=== PATIENT | male | born 1930 | race Caucasian/White ===

== ENCOUNTER 2017-03-18 23:21 | Emergency (ER) | payer OTHER ==
[~2017-03-18] VITALS: Ht 167.6 cm; Wt 59.0 kg
[2017-03-18 23:25] VITALS: BP 176/77
--- NOTE | 2017-03-18 23:26 | NUR ---
PT HELLEN BLS. TAKEN TO BED 3
--- NOTE | 2017-03-18 23:26 | NUR ---
86Y M BIBA C/O Hematuria secondary to pulling on hooper. PT DENIES ANY N/V/D, SOB, CP AT THE MOMENT. PT AAOX4. BREATHING IS UNLABORED AND CLEAR. ER MADE AWARE
--- NOTE | 2017-03-18 23:32 | NUR ---
Dr. Bailey evaluating patient at bedside.
--- NOTE | 2017-03-19 00:11 | NUR ---
Patient discharged with v/s stable. Written and verbal after care instructions given and explained. Patient verbalized understanding. Wheel Chair Assisted with to custodial. All questions addressed prior to discharge. Advised to follow up with PMD. PT STATES HE WILL PAY FOR TAXI RIDE HOME
[2017-03-19 00:12] VITALS: BP 162/79
== END 2017-03-19 00:11 | disposition home or self-care (01) ==
LOC: MED 23:21
DX: T83.028A Displacement of other urinary catheter, initial encounter (principal); F03.90 Unspecified dementia, unspecified severity, without behavioral disturbance, psychotic disturbance, mood disturbance, and anxiety; Z88.8 Allergy status to other drugs, medicaments and biological substances; X58.XXXA Exposure to other specified factors, initial encounter
CPT/HCPCS: 51702; 99284

== ENCOUNTER 2017-12-26 19:39 | Emergency (ER) | payer OTHER, MEDICARE ==
[~2017-12-26] VITALS: Ht 167.6 cm; Wt 59.0 kg
[2017-12-26 19:41] VITALS: BP 127/81
--- NOTE | 2017-12-26 19:41 | NUR ---
PT HELLEN BLS TO ER BED 06
[2017-12-26] MEDS ORDERED: MEROPENEM 1,000 MG in NACL 0.9% 100 ML IV ONE (20:15)
--- NOTE | 2017-12-26 20:30 | NUR ---
CATHETER PT ARRIVED WITH REMOVED. BLOOD IN CATHETER TUBING. BLOOD DRAINED UPON REMOVAL. PERINEAL CARE PERFORMED. THICK MUCUS REMOVED. NEW INDWELLING CATHETER PLACED. PT TOLERATED PROCEDURE WELL. 300 ML OF DARK CLOUDY URINE REMOVED UPON INSERTION OF CATHETER.
[2017-12-26] MEDS ORDERED: MEROPENEM 1,000 MG VIAL IV ONE (20:34)
[2017-12-26 20:59] LABS: BASOPHILS % (AUTO) 0.4 % (0.0-2.0); EOSINOPHILS # (AUTO) 0.3 K/uL (0-0.4); EOSINOPHILS % (AUTO) 3.5 % (0.0-4.0); HEMATOCRIT 37.8 % (36-52); HEMOGLOBIN 12.5 g/dL (12.0-18.0); LYMPHOCYTES # (AUTO) 1.4 K/uL (2.0-11.5); LYMPHOCYTES % (AUTO) 16.2 % (20.5-51.1); MEAN CORPUSCULAR HEMOGLOBIN 30 pg (27-31); MEAN CORPUSCULAR HGB CONC 33 g/dL (33-37); MEAN CORPUSCULAR VOLUME 90.8 fL (80-94); MONOCYTES # (AUTO) 1.1 K/uL (0.8-1.0); NEUTROPHILS # (AUTO) 5.7 K/uL (1.8-7.7); NEUTROPHILS % (AUTO) 66.9 % (42.2-75.2); PLATELET COUNT (AUTO) 122 K/uL (140-450); RED BLOOD CELL COUNT(AUTO) 4.16 MIL/uL (4.20-6.10); WHITE BLOOD COUNT (AUTO) 8.5 K/uL (4.8-10.8)
[2017-12-26 21:07] LABS: APPEARANCE,URINE SL CLOUDY (CLEAR); BILIRUBIN,URINE NEGATIVE (NEGATIVE); BLOOD, URINE 3+ (NEGATIVE); COLOR,URINE YELLOW (YELLOW); LEUKOCYTE ESTERASE ,URINE 1+ (NEGATIVE); NITRITE, URINE POSITIVE (NEGATIVE); UGLUCOSE NEGATIVE (NEGATIVE)
[2017-12-26 21:17] LABS: PROTHROMBIN TIME 11.7 secs (10.8-13.4)
[2017-12-26 21:19] LABS: ALBUMIN 3.3 g/dL (3.4-5.0); ANION GAP 14.3 (8-16); ASPARTATE AMINOTRANSFERASE 44 U/L (15-37); CHLORIDE 104 mmol/L (98-107); CREATININE 1.3 mg/dL (0.7-1.3); GLUCOSE 105 mg/dL (74-106); LIPASE 166 U/L (73-393); POTASSIUM 4.3 mmol/L (3.5-5.1); SODIUM SERUM 140 mmol/L (136-145); TOTAL BILIRUBIN 0.4 mg/dL (0.0-1.0); UREA NITROGEN, BLOOD 21 mg/dL (7-18)
[2017-12-26 21:38] LABS: RBC,URINE TOO NUMEROUS TO COUN /HPF (0-5)
[2017-12-26 21:39] LABS: URINE AMORPHOUS URATE 1+ /HPF (None Seen)
[2017-12-26 22:06] LABS: CREATINE KINASE MB 1.1 ng/mL (0-3.6)
--- NOTE | 2017-12-26 22:27 | NUR ---
[facility] CALLED TO MAKE SURE OK TO D/C PT W/ IM MEDICATION, REFERRED TO RADIO ENGINEERING TEACHER, EVANGELIST [phone].
--- NOTE | 2017-12-26 22:28 | NUR ---
SENIOR ASSISTANT MANAGER OF [facility] CALLED, NO ANSWER, MESSAGE LEFT WITH [facility] ER NUMBER.
[2017-12-27 00:28] VITALS: BP 127/81
--- NOTE | 2017-12-27 00:28 | NUR ---
Patient to be transferred to [facility] room 6A. Is being transferred due to strep-UTI, observation, and antibiotic administration. Receiving facility has accepting physician and available space. ER physician has signed transfer form. Patient or responsible constitution party has agreed to transfer and signed form. Patient belongings inventoried and will be sent with patient. Copy of nursing notes, lab reports, EKG, Physicians Orders and X-rays to be sent with patient. Report called to [facility] at receiving facility. [facility] ambulance service has been called for transfer.
--- NOTE | 2017-12-27 00:28 | NUR ---
Patient discharged with v/s stable. Written and verbal after care instructions given and explained. Patient alert, oriented and verbalized understanding of instructions. Ambulatory with to [facility]. All questions addressed prior to discharge. ID band removed. Patient advised to follow up with PMD. Rx of Meropenem given. Patient educated on indication of medication including possible reaction and side effects. Opportunity to ask questions provided and answered.
[2017-12-27] MEDS ORDERED: MEROPENEM 1,000 MG in NACL 0.9% 100 ML IV SCH (09:00)
--- NOTE | 2017-12-29 17:37 | NUR ---
PATIENT URINE CULTURE RETURNED AT THIS TIME PATIENT WAS DISCHARGED TO [facility], FOR IV ANTIBIOTIC THERAPY.
== END 2017-12-27 00:28 ==
LOC: MED 19:39
DX: N39.0 Urinary tract infection, site not specified (principal); B96.5 Pseudomonas (aeruginosa) (mallei) (pseudomallei) as the cause of diseases classified elsewhere; N40.1 Benign prostatic hyperplasia with lower urinary tract symptoms; Z88.8 Allergy status to other drugs, medicaments and biological substances
CPT/HCPCS: 36415; 51702; 71045; 80053; 81001; 82550; 82553; 83605; 83690; 84484; 85025; 85610; 85730; 87040; 87086; 87186; 93005; 96365; 99285; J2185

== ENCOUNTER 2018-03-14 09:07 | Inpatient (IN) | payer OTHER, MEDICARE ==
[~2018-03-14] VITALS: Ht 162.6 cm; Wt 56.7 kg
[2018-03-14 09:11] VITALS: BP 129/108
--- NOTE | 2018-03-14 09:19 | NUR ---
PT BIBA TO ED WITH C/O OF LLQ ABD PAIN X 1 DAY. PT DENIES N/V TODAY. PT HAS HX OF DEMENTIA AND IS A POOR HISTORIAN. BOWEL SOUNDS PRESENT IN ALL 4 QUADRANTS, ABDOMEN IS SOFT WITH MILD BLOATING PRESENT IN THE LOWER QUADRANTS. PT DENIES OTHER SYMPTOMS. PT PLACED ON MONITOR. ALL VSS. PENDING MD CHAN. RESP EVEN AND UNLABORED, LUNG SOUNDS CLEAR BILATERALLY, SAFETY PRECAUTIONS IN PLACE, FALL RISK BAND APPPLIED. WILL CONTINUE TO MONITOR.
[2018-03-14] MEDS ORDERED: NACL 0.9% 500 ML IV SCH (09:21)
[2018-03-14] MEDS ORDERED: NACL 0.9% 500 ML IV ONE (09:25)
--- NOTE | 2018-03-14 09:37 | NUR ---
phleb at bedside at this time
--- NOTE | 2018-03-14 09:52 | NUR ---
er md evaluating pt at bedside at this time
[2018-03-14 10:00] LABS: BASOPHILS % (AUTO) 0.1 % (0.0-2.0); HEMATOCRIT 37.8 % (36-52); HEMOGLOBIN 12.5 g/dL (12.0-18.0); LYMPHOCYTES # (AUTO) 0.3 K/uL (2.0-11.5); LYMPHOCYTES % (AUTO) 3.3 % (20.5-51.1); MEAN CORPUSCULAR HEMOGLOBIN 31 pg (27-31); MEAN CORPUSCULAR HGB CONC 33 g/dL (33-37); MEAN CORPUSCULAR VOLUME 92.2 fL (80-94); MONOCYTES # (AUTO) 0.3 K/uL (0.8-1.0); NEUTROPHILS # (AUTO) 8.5 K/uL (1.8-7.7); NEUTROPHILS % (AUTO) 93.6 % (42.2-75.2); PLATELET COUNT (AUTO) 140 K/uL (140-450); RED CELL DISTRIBUTION WIDTH 14.6 % (11.6-13.7); WHITE BLOOD COUNT (AUTO) 9.1 K/uL (4.8-10.8)
[2018-03-14] MEDS ORDERED: PIPERACILLIN/TAZOBACTAM 3.375 GM in DEXTROSE 5% 50 ML IV ONE (10:10)
[2018-03-14 10:14] LABS: PROTHROMBIN TIME 14.6 secs (10.8-13.4)
--- NOTE | 2018-03-14 10:15 | NUR ---
Patient taken for CT scan via [facility] at this time.
--- NOTE | 2018-03-14 10:17 | NUR ---
pt taken to ct scan at this time via [facility]
[2018-03-14] MEDS ORDERED: PIPERACILLIN/TAZOBACTAM 3.375 GM VIAL IV ONE (10:20)
[2018-03-14 10:29] LABS: ALBUMIN 2.8 g/dL (3.4-5.0); ANION GAP 21.4 (8-16); ASPARTATE AMINOTRANSFERASE 41 U/L (15-37); CARBON DIOXIDE 17.7 mmol/L (21-32); CHLORIDE 107 mmol/L (98-107); GLUCOSE 142 mg/dL (74-106); POTASSIUM 5.1 mmol/L (3.5-5.1); SODIUM SERUM 141 mmol/L (136-145); TOTAL BILIRUBIN 0.5 mg/dL (0.0-1.0)
--- NOTE | 2018-03-14 10:29 | NUR ---
critical lab value received at this time from Vonnie, Lactic Acid 5.0. carlita smiley notified.
[2018-03-14] MEDS ORDERED: NACL 0.9% 1,200 ML IV ONE (10:30)
[2018-03-14 10:31] LABS: CREATININE 5.4 mg/dL (0.7-1.3); UREA NITROGEN, BLOOD 85 mg/dL (7-18)
--- NOTE | 2018-03-14 11:10 | NUR ---
pt arrived w/ hooper catheter inserted upon arrival. scans showed bladder was full. new hooper to be inserted at this time.
[2018-03-14 11:18] LABS: APPEARANCE,URINE CLOUDY (CLEAR); BILIRUBIN,URINE NEGATIVE (NEGATIVE); BLOOD, URINE LARGE (NEGATIVE); COLOR,URINE YELLOW (YELLOW); LEUKOCYTE ESTERASE ,URINE 2+ (NEGATIVE); NITRITE, URINE NEGATIVE (NEGATIVE); PH,URINE 7.5 (5.0-9.0); UGLUCOSE NEGATIVE (NEGATIVE)
[2018-03-14 11:19] LABS: RBC,URINE 3-10 (FEW) /HPF (0-5); WBC,URINE TOO MANY TO COUNT /HPF (0-5)
[2018-03-14] MEDS ORDERED: LEVOFLOXACIN 500 MG/D5W PREMIX 100 ML IV ONE ×2 (11:20→11:40)
--- NOTE | 2018-03-14 11:21 | NUR ---
new urine sample collected at this time. Addendum: 03/14/18 at 1125 by [email or web address] new urine sample collected at this time from newly inserted hooper catheter. The previously inserted catheter from [employer] was not inserted into the bladder, catheter had been inserted into the urethral upon arrival and ripped out, causing a tear to the posterior portion of the penile head. bleeding controlled. pt presents with parphimosis and excoriation under the foreskin. penile swelling noted. md aware. coude catheter used. bladder was distended, 2000ml purulent, cloudy, brown urine into hooper bag. pt reports immediate relief of abd pain, pt appears to be restig comfortably following catheter insertion, pt tolerated procedure well. er md and full charge bookkeeper notfied of current findings and pt status. safety precautions in place. will continue to closely monitor.
[2018-03-14] MEDS ORDERED: HYDROcodone/APAP 7.5/325 MG 1 TAB PO PRN (11:35)
[2018-03-14] MEDS ORDERED: DOCUSATE SODIUM 100 MG GELCAP PO PRN (11:35)
[2018-03-14] MEDS ORDERED: ONDANSETRON 4 MG/2 ML VIAL IM/IVP PRN (11:35)
--- NOTE | 2018-03-14 12:30 | NUR ---
pt resting cmfortably in [facility] at this time w/ vss, rr even and unlabored. safety precautions in place. will continue to monitor.
--- NOTE | 2018-03-14 12:47 | NUR ---
resident md segundo at bedside at this time evaluating pt.
[2018-03-14 12:51] LABS: BARBITURATE, URINE NEG. ng/ml (NEG <=200); BENZODIAZEPINE, URINE NEG. ng/mL (NEG <=200); CANNABINOID, URINE NEG. ng/mL (NEG <=50); COCAINE, URINE NEG. ng/mL (NEG <=300); OPIATE, URINE NEG. ng/mL (NEG <=2000); PHENCYCLIDINE SCREEN,URINE NEG. ng/mL (NEG <=25)
[2018-03-14 12:56] LABS: APPEARANCE,URINE CLOUDY (CLEAR); COLOR,URINE YELLOW (YELLOW); PH,URINE 7.5 (5.0-9.0)
[2018-03-14 12:57] LABS: BILIRUBIN,URINE NEGATIVE (NEGATIVE); BLOOD, URINE LARGE (NEGATIVE); LEUKOCYTE ESTERASE ,URINE 2+ (NEGATIVE); NITRITE, URINE NEGATIVE (NEGATIVE); UGLUCOSE NEGATIVE (NEGATIVE)
[2018-03-14 12:58] LABS: CHOL/HDL RATIO 3.8 (1-4.5); FREE T4 (FREE THYROXINE) 1.92 ng/dL (0.76-1.46); MAGNESIUM 1.7 mg/dL (1.8-2.4); PHOSPHORUS 3.5 mg/dL (2.5-4.9); THYROID STIMULATING HORMONE 2.08 uIU/mL (0.34-3.74)
[2018-03-14 13:05] LABS: RBC,URINE 3-10 (FEW) /HPF (0-5); WBC,URINE TOO MANY TO COUNT /HPF (0-5)
[2018-03-14 13:19] VITALS: BP 95/59
--- NOTE | 2018-03-14 13:20 | NUR ---
PT RECEIVED FROM ER VIA JERRY. A/OX3. VERBAL. RE-ORIENT TO TIME, PLACE AND PERSON. SKIN DRY AND WARM TO TOUCH. PUPILS REACTIVE O LIGHT. IN ROOM AIR SATURATING 96%. LUNGS CLEAR. PERIPHERAL LINE NOTED ON RIGHT HAND 22G. SALINE LOCK. ABDOMEN SOFT, ROUND AND NON-TENDER. ACTIVE BOWEL SOUND. SKIN INTACT. DENIES PAIN, N/V AT THIS TIME. SMALL PORTION OF NAIL NOTED ON RIGHT SECOND TOE. KEPT ON BEDSIDE MONITOR. HOB ELEVATED. BED IN LOW POSITION LOCKED. CALL LIGHT WITHIN REACH. WILL CONTINUE TO MONITOR.
--- NOTE | 2018-03-14 13:20 | NUR ---
Patient will be admitted to care of [facility]. Admited to ICU Will go to room 5. Belongings list completed. Report to HYACINTH Gaines.
[2018-03-14] MEDS ORDERED: LORazepam 2 MG/ML VIAL IVP SCH (14:00)
[2018-03-14] MEDS ORDERED: MAG SULF 2000 MG/WATER PREMIX 50 ML IV ONE (14:20)
[2018-03-14] MEDS: NACL 0.9% 1,000 ML IV SCH (14:42)
[2018-03-14] MEDS ORDERED: MORPHINE SULFATE 2 MG/ML SYR IVP SCH (15:00)
--- NOTE | 2018-03-14 15:15 | NUR ---
OLD IV PERIPHERAL LINE WAS LEAKING. DC'D OLD LINE AND INSERTED NEW PERIPHERAL LINE ON RIGHT HAND 22G.
--- NOTE | 2018-03-14 15:20 | NUR ---
KENDAL PALACIOS ADMITTED FROM ER HE HAS THE POLST SAID TO BE DNR SIGN BY HIM SELF ON 12/24/17. WHEN DR. SANTA DISCUSSED WITH HIM REGARDING HIS CODE STATUS ,HE SAID HE WANTED EVERY THING TO BE DONE FOR HIM. ICU DIRECTOR MARCE HOWELL CONSULTED, SHE SAID TO PUT PATIENT CODE STATUS TO FULL CODE.
--- NOTE | 2018-03-14 15:30 | NUR ---
PT AGREED TO START CENTRAL LINE AND PERFORM AGGRESSIVE TREATMENT WHEN CONDITION DETERIORATES. SIGN INFORMED CONSENT FOR CENTRAL LINE PLACEMENT. CONSENT PLACED IN THE PT CHART. DR. NICHOLSON.
[2018-03-14] MEDS: MAGNESIUM SULFATE 1GM in DEXTROSE 5% 100 ML PREMIX IV SCH ×2 (15:54→17:01)
[2018-03-14 16:00] VITALS: BP 124/62
--- NOTE | 2018-03-14 16:32 | NUR ---
CENTRAL LINE PLACEMENT AT RIGHT IJ DONE BY DR. SANTA. CALL X-RAY FOR PLACEMENT CONFIRMATION. NO ACTIVE BLEEDING AT THE SITE. DRESSING INTACT. PT SLEEPING IN BED COMFORTABLY AT THIS TIME. VS WNL.
[2018-03-14] MEDS ORDERED: SULF-58 PO (16:37)
[2018-03-14] MEDS ORDERED: LORA10TA19 PO (16:41)
[2018-03-14] MEDS ORDERED: TAMS0.4C97 PO (16:41)
[2018-03-14] MEDS ORDERED: FINA5TAB1 PO (16:41)
[2018-03-14] MEDS ORDERED: DONE10TA10 PO (16:41)
[2018-03-14] MEDS ORDERED: FLUC150T PO (16:41)
[2018-03-14] MEDS ORDERED: LISI10TA11 PO (16:41)
[2018-03-14] MEDS ORDERED: ALBUTEROL SULFATE/IPRATROPIU 3 ML SOL IH PRN (16:55)
[2018-03-14] MEDS ORDERED: MECLIZINE 25 MG TAB PO PRN (16:55)
[2018-03-14 17:48] VITALS: BP 102/66
--- NOTE | 2018-03-14 19:06 | NUR ---
REPORT GIVEN TO GEOMAGNETICIAN RN FOR CONTINUITY OF CARE. PT ON SATBLE CONDITION.
--- NOTE | 2018-03-14 19:07 | NUR ---
SPOKE WITH DR. GUZMÁN (RESIDENT) TO INFORMED THAT PATIENT DOES NOT HAVE ANY ELECTRICIAN AIRCRAFT CONSULT YET, PER DR. GUZMÁN, " THIS PATIENT DOES NOT NEED AN ELECTRICIAN AIRCRAFT BECAUSE THIS PATIENT IS NOT CRITICAL, PATIENT HAS BEEN SEEN BY AIR QUALITY SPECIALIST ALREADY".
--- NOTE | 2018-03-14 19:30 | NUR ---
assumed care of pt.initial assessment completed.pt drowsy.sr on monitor.pt on room air.no sob noted.w/tlc to rt ij intact.with good blood return to all 3 ports infusing ordered ivf.w/peripheral iv to rt hand g22.saline lock.with hooper catheter to bsd draining adequate amt of yellow urine with sediments.skin intact.repositioned.no s/sx of pain noted. will feed pt once fully awake.
[2018-03-14] MEDS: ALBUTEROL SULFATE/IPRATROPIU 3 ML SOL IH SCH (19:47)
[2018-03-14 20:00] VITALS: BP 96/35
[2018-03-14] MEDS: DONEPEZIL 10 MG TAB PO SCH (20:10)
[2018-03-14] MEDS: PIPER/TAZO 2.25GM/D5W PREMIX 50 ML IV SCH (20:10)
--- NOTE | 2018-03-14 20:57 | NUR ---
pt arousable to deep pain at this time.will continue to closely monitor pt
[2018-03-14 22:00] VITALS: BP 93/55
--- NOTE | 2018-03-14 23:00 | NUR ---
pt awake; ate about 80% of meal.no difficulty of swallowing noted.no sob noted on room air.denies pain when asked
[2018-03-15] VITALS (9 sets, daily range): BP systolic 104–140; BP diastolic 49–97
--- NOTE | 2018-03-15 00:22 | NUR ---
repositioned.no sob noted.no pain noted.skin remains intact
--- NOTE | 2018-03-15 01:49 | NUR ---
pt to ct of head without contrast with ciarra rn.monitors attached.pt on room air.tolerating.no sob noted.
--- NOTE | 2018-03-15 02:00 | NUR ---
PT CAME BACK FROM CT OF HEAD WITHOUT INCIDENT.BEDSIDE MONITORS REATTACHED.STILL ON ROOM AIR.NO SOB NOTED.
[2018-03-15] MEDS: NACL 0.9% 1,000 ML IV SCH ×3 (02:10→19:31)
--- NOTE | 2018-03-15 03:40 | NUR ---
pt asleep; condition remains unchanged.no sob noted.repositioned
[2018-03-15] MEDS: PIPER/TAZO 2.25GM/D5W PREMIX 50 ML IV SCH ×3 (05:17→20:07)
[2018-03-15 05:30] LABS: MAGNESIUM 2.1 mg/dL (1.8-2.4)
--- NOTE | 2018-03-15 06:22 | NUR ---
PT ASLEEP;EASILY AROUSABLE.NO SOB NOTED ON ROOM AIR.NO PAIN NOTED.SKIN REMAINS INTACT
[2018-03-15 06:58] LABS: HEMOGLOBIN 9.9 g/dL (12.0-18.0); MEAN CORPUSCULAR HEMOGLOBIN 31 pg (27-31); MEAN CORPUSCULAR HGB CONC 33 g/dL (33-37); MEAN CORPUSCULAR VOLUME 93.5 fL (80-94); PLATELET COUNT (AUTO) 127 K/uL (140-450); RED BLOOD CELL COUNT(AUTO) 3.21 MIL/uL (4.20-6.10); RED CELL DISTRIBUTION WIDTH 13.7 % (11.6-13.7)
[2018-03-15] MEDS: ALBUTEROL SULFATE/IPRATROPIU 3 ML SOL IH SCH ×2 (07:11→18:49)
[2018-03-15 07:14] LABS: CREATININE 3.5 mg/dL (0.7-1.3); GLUCOSE 112 mg/dL (74-106)
[2018-03-15 07:22] LABS: CHLORIDE 114 mmol/L (98-107); POTASSIUM 4.1 mmol/L (3.5-5.1); SODIUM SERUM 141 mmol/L (136-145)
[2018-03-15 07:36] LABS: CARBON DIOXIDE 19.1 mmol/L (21-32)
--- NOTE | 2018-03-15 07:41 | NUR ---
RECEIVED REPORT FROM SPEAKER WIRER NURSE. PATIENT A&Ox1 TO PERSON AND PLACE. SKIN DRY AND INTACT. PUPILS ROUND PINPOINT NON REACTIVE TO LIGHT. RIJ IN PLACE FLUIDS RUNNING SIGHT COVERED ASYMPTOMATIC. LUNG SOUNDS CLEAR BILATERALLY. S1S2 HEARD. BOWELS SOUNDS ACTIVE x4 QUADRANTS. LOWER ABD TENDER TO TOUCH PATIENT STATED PAIN 09/07. AQUINO CATH IN PLACE DRAINING WITH GRAVITY, URINE CLEAR YELLOW. VSS. NSR ON MONITOR. WILL CLOSELY MONITOR. Addendum: 03/15/18 at 0747 by Meli Gaxiola RN TIME CHANGE TO 7:20 AM
[2018-03-15 07:49] LABS: UREA NITROGEN, BLOOD 88 mg/dL (7-18)
[2018-03-15] MEDS: FINASTERIDE 5 MG TAB PO SCH (08:35)
[2018-03-15] MEDS: TAMSULOSIN 0.4 MG CAP PO SCH (08:49)
[2018-03-15 09:35] LABS: LYMPHOCYTES % (MANUAL) 6 % (20-46); MONOCYTES % (MANUAL) 5 % (5-12)
--- NOTE | 2018-03-15 09:49 | NUR ---
03/15/18 RD INITIAL ASSESSMENT COMPLETED PLEASE REFER TO NUTRITION ASSESSMENT UNDER CARE ACTIVITY FOR ESTIMATED NEEDS. RECOMMENDATIONS: 1. CONTINUE CURRENT DIET TOLERATED. 2. RD WILL FOLLOW UP IN 3-5 DAYS; MODERATE RISK. [address]
--- NOTE | 2018-03-15 19:10 | NUR ---
RECEIVED REPORT FROM MORNING SHIFT RN, CLARISA, FOR CONTINUITY OF CARE. PT IS IS IN STABLE CONDITION AT THIS TIME. AAOX2, AWAKE AND ABLE TO RESPOND TO COMMANDS. TEMP 100.7, PERRL, VSS. LUNG SOUNDS CLEAR ON UPPER BILATERAL LOBES, DIMINSHED IN BILATERAL BASES UPON AUSCULATION, ON ROOM AIR. BOWEL SOUND ACTIVE ON AUSCULTATION. PT JORGE LUIS PAIN NAUSEA AT THIS TIME. AQUINO CATHETER IN PLACE, URINE IS CLEAR/YELLOW.SR ON DEAF/HARD OF HEARING SPECIALIST. RIGHT IJ INFUSING NS AT 75 ML/HR. SHAKING AND GENERALIZED WEAKNESS NOTED. SKIN IS DRY/ INTACT, NORMAL IN COLOR, AND WARM TO TOUCH. FALL RISK AND STANDARD PRECAUTIONS MAINTAINED. HOB ELEVATED PILLOW SUPPORT PROVIDED.
--- NOTE | 2018-03-15 19:10 | NUR ---
DR. BOONE AT BEDSIDE TO SEE PATIENT, HYACINTH MCKENNA UPDATED ON INTAKE/OUTPUT. DR. BOONE ORDERED TO CHANGE NS INFUSING AT 75ML/HR TO 50 ML/HR. WILL CARRY OUT.
--- NOTE | 2018-03-15 19:21 | NUR ---
GAVE REPORT TO SURVEY WORKER NURSE. PATIENT STABLE AT TIME OF REPORT.
[2018-03-15] MEDS: DONEPEZIL 10 MG TAB PO SCH (20:07)
[2018-03-15] MEDS: ACETAMINOPHEN 325 MG TAB PO PRN (20:08)
[2018-03-15 21:11] LABS: T4 (THYROXINE) 12.5 ug/dL (4.5 - 12.0)
--- NOTE | 2018-03-15 21:19 | NUR ---
99.4, TEMP REASSESSMENT AFTER GIVING TYLENOL AND ICE PACK. PT IS CALM AND RELAXED AT THIS TIME.
[2018-03-16] VITALS (7 sets, daily range): BP systolic 105–121; BP diastolic 45–72
--- NOTE | 2018-03-16 00:48 | NUR ---
PT SLEEPING AT THIS TIME, APPEARS TO BE WITHOUT DISTRESS.
--- NOTE | 2018-03-16 02:35 | NUR ---
PT SLEEPING, RELAXED W/O DISTRESS, AND IN STABLE CONDITION.
[2018-03-16] MEDS: PIPER/TAZO 2.25GM/D5W PREMIX 50 ML IV SCH ×3 (04:00→20:25)
--- NOTE | 2018-03-16 04:57 | NUR ---
BED BATH, FRESH GOWN, AND LINENS PROVIDED. NO BM. DARK RE URINE OUTPUT OF 1100. SKIN IS INTACT, ORAL CARE/MOUTH MOISTURIZER PROVIDED. CATHETER CARE PROVIDED AT BEDSIDE. PT IS AWAKE, DENIES PAIN AND NAUSEA. HOB ELEVATED, PILLOW SUPPORT PROVIDED, REPOSITIONED.
--- NOTE | 2018-03-16 05:00 | NUR ---
SHERIE RAMON, AT BEDSIDE FOR BLOOD DRAW.
[2018-03-16 05:15] LABS: BASOPHILS % (AUTO) 0.1 % (0.0-2.0); EOSINOPHILS # (AUTO) 0.1 K/uL (0-0.4); EOSINOPHILS % (AUTO) 0.8 % (0.0-4.0); HEMOGLOBIN 10.1 g/dL (12.0-18.0); LYMPHOCYTES # (AUTO) 0.7 K/uL (2.0-11.5); LYMPHOCYTES % (AUTO) 9.3 % (20.5-51.1); MEAN CORPUSCULAR HEMOGLOBIN 31 pg (27-31); MEAN CORPUSCULAR HGB CONC 34 g/dL (33-37); MEAN CORPUSCULAR VOLUME 91.2 fL (80-94); MONOCYTES # (AUTO) 0.6 K/uL (0.8-1.0); NEUTROPHILS # (AUTO) 6.5 K/uL (1.8-7.7); NEUTROPHILS % (AUTO) 81.8 % (42.2-75.2); PLATELET COUNT (AUTO) 104 K/uL (140-450); RED BLOOD CELL COUNT(AUTO) 3.29 MIL/uL (4.20-6.10); RED CELL DISTRIBUTION WIDTH 14.7 % (11.6-13.7); WHITE BLOOD COUNT (AUTO) 7.9 K/uL (4.8-10.8)
[2018-03-16 05:48] LABS: PHOSPHORUS 3.1 mg/dL (2.5-4.9)
[2018-03-16 06:08] LABS: ANION GAP 15.4 (8-16); CARBON DIOXIDE 19.6 mmol/L (21-32); CHLORIDE 113 mmol/L (98-107); CREATININE 2.9 mg/dL (0.7-1.3); GLUCOSE 108 mg/dL (74-106); SODIUM SERUM 144 mmol/L (136-145)
[2018-03-16 06:16] LABS: UREA NITROGEN, BLOOD 75 mg/dL (7-18)
[2018-03-16] MEDS: ALBUTEROL SULFATE/IPRATROPIU 3 ML SOL IH SCH ×2 (06:16→19:36)
--- NOTE | 2018-03-16 06:17 | NUR ---
RECEIVED CRITICAL LAB VALUE FROM ARISTEO, TRENDING DOWN BUN= 75, CREATININE = 2.9.
--- NOTE | 2018-03-16 06:54 | NUR ---
DR. SANTA AT BEDSIDE TO SEE PT. UPDATED ON PT CONDITIONS.
--- NOTE | 2018-03-16 07:32 | NUR ---
RECEIVED REPORT FROM NIGHT NURSE. PT IS AAOX2, CONFUSED AT TIMES, ABLE TO FOLLOW SIMPLE COMMANDS AND ABLE TO MAKE NEEDS KNOWN. NORMAL SINUS RHYTHM ON MONITOR. PT IS ON ROOM AIR. BILATERAL LUNGS SOUND CLEAR, DIMINISHED LOWER LOBES. ABDOMEN FLAT, SOFT, NONTENDER WITH ACTIVE BOWEL SOUNDS. CENTRAL LINE TLC TO RIGHT IJ ASYMPTOMATIC, PATENT AND INTACT, RUNNING IVF NORMAL SALINE AT 50 ML/HR. AQUINO CATH IN PLACE DRAINING URINE TO GRAVITY DRAINAGE BAG. SKIN IS DRY AND WARM TO TOUCH. AFEBRILE. VITAL SIGNS STABLE, DENIES PAIN. BED LOCKED IN LOWEST POSITION, HOB 30 DEGREES, AND CALL LIGHT WITHIN REACH. WILL CONTINUE TO MONITOR.
--- NOTE | 2018-03-16 07:32 | NUR ---
PROVIDED BEDSIDE REPORT TO MORNING SHIFT RN, RUPINDER, FOR CONTINUITY OF CARE. PT IN STABLE CONDITION AT THIS TIME.
--- NOTE | 2018-03-16 07:40 | NUR ---
BREAKFAST SERVED. PT IS ABLE TO FEED SELF WITH MINIMAL ASSIST.
--- NOTE | 2018-03-16 08:00 | NUR ---
Service Center Assistant Notes: I called [facility] at I spoke to Gwendolyn who stated that patient is been residing in their facility for a bout a year and he is able to return to facility when he is clear and ready for discharge from [facility].
[2018-03-16] MEDS: TAMSULOSIN 0.4 MG CAP PO SCH (08:26)
[2018-03-16] MEDS: FINASTERIDE 5 MG TAB PO SCH (08:26)
--- NOTE | 2018-03-16 08:31 | NUR ---
MEDICATIONS ADMINISTERED ORDERED. PT TOLERATED WELL.
[2018-03-16] MEDS: NACL 0.9% 1,000 ML IV SCH (10:15)
--- NOTE | 2018-03-16 11:30 | NUR ---
PT'S NIECE, JEY, CAME TO SEE PT. CONTACT INFORMATION RECEIVED FROM JEY. ADMITTING NOTIFIED, ADMISSION PAPERWORK SIGNED.
--- NOTE | 2018-03-16 11:35 | NUR ---
DR. RIVERA AND RESIDENT GROUP IN TO SEE PT. WILL FOLLOW UP WITH NEW ORDERS.
[2018-03-16] MEDS: ACETAMINOPHEN 325 MG TAB PO PRN ×2 (12:38→20:25)
--- NOTE | 2018-03-16 12:38 | NUR ---
PT HAD 25% OF LUNCH. TYLENOL GIVEN AND COOLING MEASURES INITIATED FOR TEMP 100.4. WILL CONTINUE TO MONITOR.
--- NOTE | 2018-03-16 13:41 | NUR ---
PT'S TEMP 98.7 AND IS SLEEPING COMFORTABLY AT THIS TIME. SAFETY MEASURES ENSURED. WILL CONTINUE TO MONITOR.
[2018-03-16] MEDS ORDERED: PROBIOTIC SCREEN 1 EA MISC MC PRN (14:00)
--- NOTE | 2018-03-16 14:47 | NUR ---
PT IS COMFORTABLY RESTING AND WATCHING TV. AFEBRILE AND VSS AT THIS TIME. NO S/SX OF ACUTE DISTRESS NOTED.
--- NOTE | 2018-03-16 17:35 | NUR ---
DINNER PROVIDED AND NEEDS WELL ATTENDED. WILL CONTINUE TO MONITOR.
--- NOTE | 2018-03-16 17:45 | NUR ---
PT SEEN AND EXAMINED BY DR. BOONE. WILL FOLLOW UP WITH NEW ORDERS.
--- NOTE | 2018-03-16 18:30 | NUR ---
PT IS SLEEPING COMFORTABLY AT THIS TIME. VSS. SAFETY PRECAUTIONS IN PLACE.
--- NOTE | 2018-03-16 19:21 | NUR ---
REPORT GIVEN TO ELECTRONIC MUSICAL INSTRUMENT REPAIRER RN FOR CONTINUITY OF CARE. PT IS IN STABLE CONDITION.
--- NOTE | 2018-03-16 19:30 | NUR ---
RECEIVED REPORT FROM DAY NURSE, NO ACUTE DISTRESS NOTED. WILL CONTINUE TO OBSERVE.
--- NOTE | 2018-03-16 19:45 | NUR ---
PT AWAKE SITTING UP IN BED, AOX2; ABLE TO VERBALIZE NEEDS. + 3 PERRL MOVING UPPER AND LOWER EXTREMITIES. LUNGS DIMINISHED, SR 90S. NO EDEMA NOTED. ABD SOFT NON DISTENDED. AQUINO CATH IN PLACE CLEAR YELLOW URINE. SCDS IN PLACE. R IJ NOTED, PATENT, IVF TKO. PT DENIES PAIN @ THIS TIME. WILL CONTINUE TO OBSERVE.
[2018-03-16] MEDS: DONEPEZIL 10 MG TAB PO SCH (20:25)
--- NOTE | 2018-03-16 21:30 | NUR ---
DR GREGORIO @ BEDSIDE
--- NOTE | 2018-03-16 22:00 | NUR ---
PT TURNED AND REPOSITIONED. NO S/S OF ACUTE DISTRESS NOTED. WILL CONTINUE TO OBSERVE.
[2018-03-17] VITALS: BP 114/53
--- NOTE | 2018-03-17 | NUR ---
PT SLEEPING, EASILY AROUSABLE, PT CAN REPOSITION SELF, VITAL SIGNS STABLE, DENIES ANY PAIN, NO SOB NOTED, SAFETY MEASURES IN PLACE, CONTINUE TO MONITOR CLOSELY. Addendum: 03/17/18 at 2344 by Gilberto Spicer RN WRONG DATE
[2018-03-17 04:00] VITALS: BP 111/43
--- NOTE | 2018-03-17 04:00 | NUR ---
AM CARE DONE, PT TURNED AND REPOSITIONED
[2018-03-17] MEDS: PIPER/TAZO 2.25GM/D5W PREMIX 50 ML IV SCH ×3 (05:12→20:03)
[2018-03-17] MEDS: ALBUTEROL SULFATE/IPRATROPIU 3 ML SOL IH SCH ×2 (07:00→20:25)
--- NOTE | 2018-03-17 07:20 | NUR ---
RECEIVED REPORT FROM DESIGN ENG. PATIENT VSS. NSR WITH PACS ON MONITOR. RIJ IN PLACE. SKIN WARM AND DRY. ROOM AIR LUNGS SOUNDS CLEAR. PUPILS ROUND AND REACTIVE TO LIGHT. BOWEL SOUND ACTIVE. ABD WOUND DRESSING DRY AND INTACT. AQUINO CATH IN PLACE. WILL CONTINUE TO MONITOR.
--- NOTE | 2018-03-17 07:35 | NUR ---
REPORT GIVEN FOR CONTINUITY OF CARE. NO ACUTE DISTRESS
[2018-03-17 08:00] VITALS: BP 112/60
[2018-03-17] MEDS: FINASTERIDE 5 MG TAB PO SCH (09:06)
[2018-03-17] MEDS: LACTOBACILLUS RHAMNOSUS GG 1 EACH CAP PO SCH (09:06)
[2018-03-17] MEDS: TAMSULOSIN 0.4 MG CAP PO SCH (10:03)
[2018-03-17 11:25] LABS: HEMATOCRIT 31.2 % (36-52); HEMOGLOBIN 10.4 g/dL (12.0-18.0); MEAN CORPUSCULAR HEMOGLOBIN 30 pg (27-31); MEAN CORPUSCULAR HGB CONC 33 g/dL (33-37); MEAN CORPUSCULAR VOLUME 90.6 fL (80-94); PLATELET COUNT (AUTO) 97 K/uL (140-450); RED BLOOD CELL COUNT(AUTO) 3.44 MIL/uL (4.20-6.10); RED CELL DISTRIBUTION WIDTH 14.4 % (11.6-13.7); WHITE BLOOD COUNT (AUTO) 10.1 K/uL (4.8-10.8)
--- NOTE | 2018-03-17 11:32 | NUR ---
CM NOTE ADMISSION CHART REVIEW DONE. [phone] NEERAJ # [phone]. Addendum: 03/17/18 at 1202 by Tiana Walden PER SW ADMISSION SCREEN, PATIENT WILL NEED TRANSPORTATION BACK TO HIS ASSISTED LIVING WHEN DISCHARGED. PER YEIMI, NON EMERGENCY MED TRANSPORT IS NOT PART OF PATIENT'S BENEFITS. PER WADE PH# [phone], FAMILY RATE QUOTE FOR WHEELCHAIR TRANSPORT IS AROUND $51.50 AND FOR GURNEY AROUND $106.
[2018-03-17 11:39] LABS: ANION GAP 10.6 (8-16); CARBON DIOXIDE 24.3 mmol/L (21-32); CHLORIDE 110 mmol/L (98-107); CREATININE 2.4 mg/dL (0.7-1.3); GLUCOSE 139 mg/dL (74-106); POTASSIUM 3.9 mmol/L (3.5-5.1); SODIUM SERUM 141 mmol/L (136-145); UREA NITROGEN, BLOOD 54 mg/dL (7-18)
[2018-03-17 11:42] LABS: MAGNESIUM 1.8 mg/dL (1.8-2.4); PHOSPHORUS 2.2 mg/dL (2.5-4.9)
[2018-03-17 12:00] VITALS: BP 122/66
[2018-03-17] MEDS ORDERED: SODIUM PHOS / POTASSIUM PHOS 1 PKT PDR PO SCH (12:05)
[2018-03-17 12:37] LABS: EOSINOPHILS % (MANUAL) 2 % (0-4); LYMPHOCYTES % (MANUAL) 6 % (20-46); MONOCYTES % (MANUAL) 5 % (5-12)
--- NOTE | 2018-03-17 13:15 | NUR ---
PATIENTS JAIME SMITH AT BEDSIDE.
[2018-03-17 16:00] VITALS: BP 119/68
[2018-03-17] MEDS: SODIUM PHOS / POTASSIUM PHOS 1 PKT PDR PO SCH (17:18)
[2018-03-17] MEDS: NACL 0.9% 1,000 ML IV SCH (17:19)
--- NOTE | 2018-03-17 19:16 | NUR ---
Gave report to [facility] tele nurse, Gilberto, for continuity of care. Patient stable at time of report.
--- NOTE | 2018-03-17 19:20 | NUR ---
RECEIVED PT TRANSFER FROM ICU, PT AAOX2, PERIODS OF CONFUSION AND FORGETFUL DUE TO HX OF DEMENTIA, CALM AND COOPERATIVE AT THIS TIME, VITAL SIGNS STABLE, DENIES PAIN AND NO SOB NOTED, AQUINO CATHETER IN PLACE DRAINING YELLOW URINE, IVF AT TKO RATE INFUSING VIA RT IJ CVP LINE, DRESSING DRY AND INTACT, PLAN OF CARE DISCUSSED, SAFETY MEASURES IN PLACE, SIDE RAILS UP AND BED ALARM ON, CALL LIGHT WITHIN REACH.
[2018-03-17 20:00] VITALS: BP 128/60
[2018-03-17] MEDS: DONEPEZIL 10 MG TAB PO SCH (20:01)
--- NOTE | 2018-03-17 21:00 | NUR ---
DUE MEDICATION ADMINISTERED WITH EDUCATION PROVIDED, ALL NEEDS ATTENDED.
--- NOTE | 2018-03-17 23:44 | NUR ---
PT SLEEPING, EASILY AROUSABLE, PT CAN REPOSITION SELF, VITAL SIGNS STABLE, DENIES ANY PAIN, NO SOB NOTED, SAFETY MEASURES IN PLACE, CONTINUE TO MONITOR CLOSELY. Addendum: 03/18/18 at 0701 by Gilberto Spicer RN PT REPOSITIONED WITH ASSIST.
[2018-03-18] VITALS: BP 112/52
--- NOTE | 2018-03-18 03:17 | NUR ---
PT SEEN TAKING OFF HIS GOWN, PT CONFUSED, REORIENT TO PLACE AND TIME, VITAL SIGNS STABLE, DENIES PAIN, NO SOB NOTED, SIDE RAILS UP AND BED ALARM ON, MONITORED CLOSELY.
[2018-03-18 04:00] VITALS: BP 113/63
[2018-03-18] MEDS: PIPER/TAZO 2.25GM/D5W PREMIX 50 ML IV SCH ×2 (04:31→12:34)
--- NOTE | 2018-03-18 05:55 | NUR ---
LABS DRAWN VIA RT IJ CVP LINE WITH GOOD BLOOD RETURN, ALL PORTS FLUSHES WELL, PT IN NO DISTRESS AT THIS TIME, MONITORED CLOSELY.
--- NOTE | 2018-03-18 06:20 | NUR ---
PT TOOK OFF TELE PATCHES STATED "I DON'T NEED THOSE", RISK AND BENEFITS EXPLAINED, VERBALIZED UNDERSTANDING, MONITORED CLOSELY.
[2018-03-18] MEDS: ALBUTEROL SULFATE/IPRATROPIU 3 ML SOL IH SCH (06:30)
[2018-03-18 07:07] LABS: BASOPHILS % (AUTO) 0.3 % (0.0-2.0); EOSINOPHILS # (AUTO) 0.3 K/uL (0-0.4); EOSINOPHILS % (AUTO) 3.4 % (0.0-4.0); HEMATOCRIT 28.6 % (36-52); HEMOGLOBIN 9.8 g/dL (12.0-18.0); LYMPHOCYTES # (AUTO) 1.2 K/uL (2.0-11.5); MEAN CORPUSCULAR HEMOGLOBIN 31 pg (27-31); MEAN CORPUSCULAR HGB CONC 34 g/dL (33-37); MEAN CORPUSCULAR VOLUME 89.8 fL (80-94); MONOCYTES % (AUTO) 10.2 % (1.7-9.3); NEUTROPHILS # (AUTO) 7.6 K/uL (1.8-7.7); NEUTROPHILS % (AUTO) 74.1 % (42.2-75.2); PLATELET COUNT (AUTO) 93 K/uL (140-450); RED BLOOD CELL COUNT(AUTO) 3.19 MIL/uL (4.20-6.10); RED CELL DISTRIBUTION WIDTH 14.4 % (11.6-13.7); WHITE BLOOD COUNT (AUTO) 10.3 K/uL (4.8-10.8)
--- NOTE | 2018-03-18 07:12 | NUR ---
PT SLEEPING, NO DISTRESS NOTED, REPORT GIVEN TO HYACINTH PERRY FOR CONTINUITY OF CARE.
--- NOTE | 2018-03-18 07:30 | NUR ---
PATIENT WAS SLEEPING COMFORTABLY, EASILY AROUSABLE BY NAME. RESPIRATION EVEN, UNLABOR ON ROOM AIR. SKIN DRY AND WARM. IV PATENT AND INTACT. AQUINO DRAINING WELL. DENIED PAIN, SOB, AT THIS TIME. PLAN OF CARE WAS DISCUSSED WITH PATIENT. BED AT LOW POSITION, SIDE RAILS UP. CALL LIGHT WITHIN REACH. FALL RISK PRECAUTION ENSURED
[2018-03-18 08:00] VITALS: BP 110/54
[2018-03-18 08:02] LABS: CARBON DIOXIDE 23.9 mmol/L (21-32); CHLORIDE 110 mmol/L (98-107); CREATININE 2.4 mg/dL (0.7-1.3); GLUCOSE 109 mg/dL (74-106); POTASSIUM 3.9 mmol/L (3.5-5.1); SODIUM SERUM 143 mmol/L (136-145); UREA NITROGEN, BLOOD 47 mg/dL (7-18)
[2018-03-18] MEDS: SODIUM PHOS / POTASSIUM PHOS 1 PKT PDR PO SCH ×2 (08:04→12:34)
[2018-03-18] MEDS: LACTOBACILLUS RHAMNOSUS GG 1 EACH CAP PO SCH (08:04)
[2018-03-18] MEDS: TAMSULOSIN 0.4 MG CAP PO SCH (08:04)
[2018-03-18] MEDS: FINASTERIDE 5 MG TAB PO SCH (08:05)
[2018-03-18 08:19] LABS: MAGNESIUM 1.6 mg/dL (1.8-2.4); PHOSPHORUS 3.1 mg/dL (2.5-4.9)
[2018-03-18] MEDS ORDERED: SULF-58 PO (09:19)
--- NOTE | 2018-03-18 09:30 | NUR ---
PATIENT SLEEPING COMFORTABLY. RESPIRATION EVEN, UNLABOR ON ROOM AIR. NO DISTRESS NOTED AT THIS TIME
--- NOTE | 2018-03-18 09:58 | NUR ---
CM NOTE CONCURRENT REVIEW FAXED TO [facility] [phone] NEERAJ # [phone].
[2018-03-18] MEDS ORDERED: MAGNESIUM OXIDE 400 MG TAB PO SCH (10:00)
--- NOTE | 2018-03-18 11:00 | NUR ---
Physical Therapy Nurse Note: Per patient's niece Tatiana Jacobo , she can come to our hospital today and provide transportation for patient after 3pm, patient's nurser Lynn made aware.
[2018-03-18] MEDS ORDERED: NACL 0.45% 1,000 ML IV SCH (11:55)
[2018-03-18 12:00] VITALS: BP 110/45
--- NOTE | 2018-03-18 12:17 | NUR ---
PATIENT AWAKE, ALERT. RESPIRATION EVEN, UNLABOR ON ROOM AIR. CENTRAL LINE PATENT AND INTACT. VS IS STABLE. CALL LIGHT WITHIN REACH
--- NOTE | 2018-03-18 14:00 | NUR ---
PATIENT AWAKE, ALERT. RESPIRATION EVEN, UNLABOR ON ROOM AIR. CENTRAL CATH WAS REMOVED, CATHETER INTACT, NO ACTIVE BLEEDING SEEN. PATIENT TOLERATED WELL.
[2018-03-18 17:00] VITALS: BP 112/67
--- NOTE | 2018-03-18 17:10 | NUR ---
PATIENT AWAKE, ALERT. RESPIRATION EVEN, UNLABOR ON ROOM AIR. VS IS STABLE. DENIED PAIN AT THIS TIME. CALL LIGHT WITHIN REACH.
--- NOTE | 2018-03-18 17:30 | NUR ---
DISCHARGE INSTRUCTION AND PRESCRIPTION WERE GIVEN AND EXPLAINED TO PATIENT AND HIS NIECE, AUBRIE. NIECE VERBALIZED UNDERSTANDING. ID BAND AND ACCOUNTING MANAGER WERE REMOVED. AQUINO IS DRAINING WITH CLEAR, YELLOW URINE. ALL BELONGINGS WERE TAKEN WITH THE PATIENT AND FAMILY. PATIENT WAS ESCORTED OUT IN WHEELCHAIR BY STAFF. PATIENT IS STABLE AT THIS TIME.
--- NOTE | 2018-03-19 07:38 | NUR ---
DISCHARGE SUMMARY FAXED TO [facility] [phone]
== END 2018-03-18 17:30 | disposition home or self-care (01) | DRG 871 ==
LOC: MED 09:07 → MIC 11:38 → MTU 03-17 18:43
PROVIDERS: ADMIT Family Medicine; ATTEND Family Medicine
PROC: 02HV33Z Insertion of Infusion Device into Superior Vena Cava, Percutaneous Approach (ICD-10-PCS; principal; 2018-03-14)
PROC: B548ZZA Ultrasonography of Superior Vena Cava, Guidance (ICD-10-PCS; 2018-03-14)
DX: A41.9 Sepsis, unspecified organism (principal); J69.0 Pneumonitis due to inhalation of food and vomit; N17.0 Acute kidney failure with tubular necrosis; E43 Unspecified severe protein-calorie malnutrition; G93.41 Metabolic encephalopathy; N13.30 Unspecified hydronephrosis; N13.8 Other obstructive and reflux uropathy; N39.0 Urinary tract infection, site not specified; R74.0 Nonspecific elevation of levels of transaminase and lactic acid dehydrogenase [LDH]; I72.3 Aneurysm of iliac artery; E78.5 Hyperlipidemia, unspecified; F03.90 Unspecified dementia, unspecified severity, without behavioral disturbance, psychotic disturbance, mood disturbance, and anxiety; R65.20 Severe sepsis without septic shock; N40.1 Benign prostatic hyperplasia with lower urinary tract symptoms; R33.8 Other retention of urine; E83.42 Hypomagnesemia; N18.9 Chronic kidney disease, unspecified; I12.9 Hypertensive chronic kidney disease with stage 1 through stage 4 chronic kidney disease, or unspecified chronic kidney disease; B96.4 Proteus (mirabilis) (morganii) as the cause of diseases classified elsewhere; Z68.20 Body mass index [BMI] 20.0-20.9, adult; Z88.8 Allergy status to other drugs, medicaments and biological substances; Z79.899 Other long term (current) drug therapy; Z79.2 Long term (current) use of antibiotics
CPT/HCPCS: 36415; 70450; 71045; 76770; 80048; 80053; 80305; 81001; 82140; 82150; 82948; 83036; 83605; 83690; 83735; 83880; 84100; 84154; 84436; 84439; 84443; 84479; 84484; 85025; 85610; 85730; 87040; 87081; 87086; 87186; 93005; 94640; 96361; 96365; 96367; 96375; 99291; C1758; J1642; J1956; J2060; J2270; J2543; J7030; J7060; J7620; J8597; Q0092

== ENCOUNTER 2019-03-20 16:24 | Emergency (ER) | payer OTHER, MEDICAID ==
[~2019-03-20] VITALS: Ht 162.6 cm; Wt 63.5 kg
[~2019-03-20 16:24] MED LIST: DONE10TA10 PO; FINA5TAB1 PO; FLUC150T PO; LISI10TA11 PO; LORA10TA19 PO; SULF-58 PO; TAMS0.4C97 PO
[2019-03-20 16:29] VITALS: BP 145/90
--- NOTE | 2019-03-20 16:29 | NUR ---
PT BIBA TO BED 09.
--- NOTE | 2019-03-20 16:40 | NUR ---
BIBA FOR REPLACEMENT OF AQUINO CATHETER. PER EMS, NO OTHER COMPLAINTS/SYMPTOMS AT THIS TIME.
--- NOTE | 2019-03-20 16:45 | NUR ---
ERMD AT BEDSIDE
--- NOTE | 2019-03-20 17:53 | NUR ---
PT REFUSING AQUINO CATHETER, PROVIDED EDUCATION ON THE REASON FOR PLACEMENT. PT STATES "I DON'T NEED NO CATHETER, I HAVENT HAD ONE IN YEARS, GET ME OUT OF THIS BED"
--- NOTE | 2019-03-20 18:00 | NUR ---
# 16 FR Rodarte catheter with utilizing sterile technique. Immediate return of 350 ml DARK YELLOW urine noted. Bedside drainage bag placed below level of bladder. Pt tolerated procedure WELL
--- NOTE | 2019-03-20 18:11 | NUR ---
SPOKE WITH NURSE AT [facility] (#8) TO LET HER KNOW HE WAS READY TO BE PICKED UP. SHE STATES THERE IS NO ONE AVAILABLE TO PICK HIM UP, THAT HE WILL NEED AN AMBULANCE TO BRING HIM BACK.
--- NOTE | 2019-03-20 19:03 | NUR ---
PT RESTING IN BED, WAITING FOR AMBULANCE TRANSFER
--- NOTE | 2019-03-20 19:06 | NUR ---
[facility] AT BEDSIDE FOR TRANSFER.
[2019-03-20 19:07] VITALS: BP 140/80
--- NOTE | 2019-03-20 19:07 | NUR ---
Patient discharged with v/s stable. Patient verbalized understanding. ASSISTED TO [facility]URN TO jail. All questions addressed prior to discharge. Advised to follow up with PMD.
== END 2019-03-20 19:07 | disposition home or self-care (01) ==
LOC: MED 16:24
DX: T83.021A Displacement of indwelling urethral catheter, initial encounter (principal); F03.90 Unspecified dementia, unspecified severity, without behavioral disturbance, psychotic disturbance, mood disturbance, and anxiety; Z79.899 Other long term (current) drug therapy; Z88.8 Allergy status to other drugs, medicaments and biological substances; Y84.6 Urinary catheterization as the cause of abnormal reaction of the patient, or of later complication, without mention of misadventure at the time of the procedure; Y92.89 Other specified places as the place of occurrence of the external cause
CPT/HCPCS: 51702; 99284